=== PATIENT | male | born 1995 | race Caucasian/White ===

== ENCOUNTER 2016-12-21 02:42 | Emergency (ER) | payer SELFPAY ==
[~2016-12-21] VITALS: Ht 170.2 cm; Wt 63.5 kg
[2016-12-21 02:42] VITALS: BP_SYST 114
[2016-12-21 03:10] VITALS: BP_SYST 119
== END 2016-12-21 03:10 ==
LOC: SED 02:42
DX: Z02.89 Encounter for other administrative examinations (principal)
CPT/HCPCS: 99283